=== PATIENT | female | born 1960 | race Asian ===

== ENCOUNTER 2020-11-07 08:33 | Outpatient (REF) | payer OTHER, SELFPAY ==
[2020-11-07 10:00] LABS: MANUAL DIFF FLAG NO
[2020-11-07 10:04] LABS: Basophils Percent Auto 0.4 % (0-2); Eosinophils Absolute Auto 0.2 X10*3/uL (0.0-0.4); Eosinophils Percent Auto 2.6 % (0-4); Hemoglobin 13.8 g/dl (12.0-16.0); Lymphocytes Absolute Auto 2.4 X10*3/uL (1.2-4.9); Lymphocytes Percent Auto 33.1 % (20-40); Mean Corpuscular HGB Conc 32.9 g/dl (31.0-35.0); Mean Corpuscular Hemoglobin 28.8 pg (27.0-33.0); Mean Corpuscular Volume 87.5 fL (80-98); Mean Platelet Volume 10.3 fL (9.4-12.3); Monocytes Absolute Auto 0.4 X10*3/uL (0.1-1.2); Monocytes Percent Auto 5.6 % (2-11); Neutrophils Absolute Auto 4.2 X10*3/uL (2.0-8.3); Neutrophils Percent Auto 58.3 % (45-73); Platelet Count 239 X10*3/uL (160-400); White Blood Count 7.2 X10*3/uL (4.8-10.8)
[2020-11-07 10:28] LABS: Alanine Aminotransferase 11 U/L (0-31); Albumin Level 4.4 g/dL (3.5-5.0); Alkaline Phosphatase 76 U/L (39-117); Anion Gap 9 (12-20); Aspartate Amino Transferase 16 U/L (5-31); Bilirubin Total 0.9 mg/dL (0.0-1.0); Blood Urea Nitrogen 13 mg/dL (9-16); Calcium 9.5 mg/dL (8.4-10.2); Carbon Dioxide 32 mmol/L (22-29); Chloride 104 mmol/L (96-108); Cholesterol 274 mg/dL; Estimated Glomerular Filt Rate > 60; Glucose Fasting 83 mg/dL (60-99); HDL Cholesterol 47 mg/dL; LDL Cholesterol Calculated 196 mg/dl; Potassium 4.2 mmol/L (3.3-5.1); Sodium 141 mmol/L (135-145); Total Protein 7.6 g/dL (6.5-8.0); Triglycerides 157 mg/dL
== END 2020-11-07 08:34 | disposition home or self-care (01) ==
LOC: HO.10HDL 08:33
PROVIDERS: Visit Provider Internal Medicine
DX: I10 Essential (primary) hypertension (principal); E78.00 Pure hypercholesterolemia, unspecified
CPT/HCPCS: 36415; 80053; 80061; 85025

== ENCOUNTER 2020-11-27 10:53 | Outpatient (REF) | payer OTHER, SELFPAY ==
[2020-11-27 13:43] LABS: MANUAL DIFF FLAG NO
[2020-11-27 13:48] LABS: Basophils Percent Auto 0.4 % (0-2); Eosinophils Absolute Auto 0.3 X10*3/uL (0.0-0.4); Eosinophils Percent Auto 4.6 % (0-4); Hematocrit 40.3 % (37-47); Hemoglobin 13.2 g/dl (12.0-16.0); Imm Gran Abs Auto 0.01 X10*3/uL (0.00-0.03); Imm Gran Pct Auto 0.2 % (0.0-0.4); Lymphocytes Absolute Auto 2.3 X10*3/uL (1.2-4.9); Lymphocytes Percent Auto 39.9 % (20-40); Mean Corpuscular HGB Conc 32.8 g/dl (31.0-35.0); Mean Corpuscular Hemoglobin 28.4 pg (27.0-33.0); Mean Corpuscular Volume 86.7 fL (80-98); Mean Platelet Volume 10.8 fL (9.4-12.3); Monocytes Absolute Auto 0.3 X10*3/uL (0.1-1.2); Monocytes Percent Auto 4.9 % (2-11); Neutrophils Absolute Auto 2.9 X10*3/uL (2.0-8.3); Platelet Count 227 X10*3/uL (160-400); Red Blood Count 4.65 X10*6/uL (4.20-5.50); Red Cell Distribution Width 11.9 % (11.0-16.0); White Blood Count 5.7 X10*3/uL (4.8-10.8)
[2020-11-27 14:21] LABS: Anion Gap 15 (12-20); Blood Urea Nitrogen 13 mg/dL (9-16); Carbon Dioxide 26 mmol/L (22-29); Chloride 104 mmol/L (96-108); Estimated Glomerular Filt Rate > 60; Potassium 3.9 mmol/L (3.3-5.1); Sodium 141 mmol/L (135-145)
[2020-11-27 14:22] LABS: Alanine Aminotransferase 16 U/L (0-31); Albumin Level 4.4 g/dL (3.5-5.0); Alkaline Phosphatase 79 U/L (39-117); Aspartate Amino Transferase 20 U/L (5-31); Bilirubin Total 0.8 mg/dL (0.0-1.0); Calcium 9.4 mg/dL (8.4-10.2); Glucose Random 80 mg/dL (60-115); Total Protein 7.4 g/dL (6.5-8.0)
== END 2020-11-27 10:54 | disposition home or self-care (01) ==
LOC: HO.10HDL 10:53
PROVIDERS: Visit Provider Internal Medicine
DX: I10 Essential (primary) hypertension (principal); E78.00 Pure hypercholesterolemia, unspecified; R51.9 Headache, unspecified
CPT/HCPCS: 36415; 80053; 82550; 85025; 86140

== ENCOUNTER 2022-12-20 07:56 | Outpatient (REF) | payer OTHER, SELFPAY ==
[2022-12-20 08:23] LABS: MANUAL DIFF FLAG NO
[2022-12-20 08:31] LABS: Basophils Percent Auto 0.5 % (0-2); Eosinophils Absolute Auto 0.2 X10*3/uL (0.0-0.4); Eosinophils Percent Auto 3.4 % (0-4); Hematocrit 39.3 % (37.0-47.0); Hemoglobin 12.9 g/dl (12.0-16.0); Imm Gran Abs Auto 0.01 X10*3/uL (0.00-0.03); Imm Gran Pct Auto 0.2 % (0.0-0.4); Lymphocytes Absolute Auto 2.4 X10*3/uL (1.2-4.9); Lymphocytes Percent Auto 40.5 % (20-40); Mean Corpuscular HGB Conc 32.8 g/dl (31.0-35.0); Mean Corpuscular Hemoglobin 28.2 pg (27.0-33.0); Monocytes Absolute Auto 0.4 X10*3/uL (0.1-1.2); Monocytes Percent Auto 7.5 % (2-11); Neutrophils Absolute Auto 2.8 x10*3/uL (2.0-8.3); Neutrophils Percent Auto 47.9 % (45-73); Platelet Count 229 X10*3/uL (160-400); Red Blood Count 4.57 X10*6/uL (4.20-5.50); Red Cell Distribution Width 12.2 % (11.0-16.0); White Blood Count 5.9 X10*3/uL (4.8-10.8)
[2022-12-20 09:05] LABS: Alanine Aminotransferase 18 U/L (0-31); Albumin Level 4.1 g/dL (3.5-5.0); Alkaline Phosphatase 63 U/L (39-117); Anion Gap 12 (12-20); Aspartate Amino Transferase 19 U/L (5-31); Bilirubin Total 0.8 mg/dL (0.0-1.0); Blood Urea Nitrogen 13 mg/dL (9-16); Calcium 9.4 mg/dL (8.4-10.2); Carbon Dioxide 26 mmol/L (22-29); Chloride 108 mmol/L (96-108); Cholesterol 187 mg/dL; Estimated Glomerular Filt Rate > 60; Glucose Random 89 mg/dL (60-115); HDL Cholesterol 44 mg/dL; LDL Cholesterol Calculated 118 mg/dl; Potassium 3.8 mmol/L (3.3-5.1); Sodium 142 mmol/L (135-145); Total Protein 7.2 g/dL (6.5-8.0); Triglycerides 125 mg/dL
== END 2022-12-20 07:57 | disposition home or self-care (01) ==
LOC: HO.LAB 07:56
PROVIDERS: PCP Internal Medicine; Visit Provider Internal Medicine
DX: I10 Essential (primary) hypertension (principal); E78.00 Pure hypercholesterolemia, unspecified
CPT/HCPCS: 36415; 80053; 80061; 85025

== ENCOUNTER 2025-03-21 15:49 | Outpatient (AMB) | payer OTHER, SELFPAY ==
--- NOTE | 2025-03-21 16:01 | A.OFFPC_ITS ---
Vital Signs 03/21/25 16:05 03/21/25 16:31 Height 5 ft 2 in Weight 55.792 kg BMI 22.5 BP 182/110 H 178/102 H Respiration 14 Pulse 74 Pulse Source Pulse Oximeter Temp 97.3 F Temp Source Temporal Artery Scan Pulse Oximetry (%) 99 Oxygen Delivery Method Room Air Intake Visit Reasons: Routine / Dr Shirley - see comments Threading Machine Tender Required: No Accompanied by: Self / Same As Patient Allergies No Known Allergies Allergy (Verified 03/21/25 16:03) Medication List - Last Reconciled 03/21/25 by MANUEL Pandey atorvastatin (Lipitor) 10 mg PO DAILY losartan 75 mg (1.5 x 50 mg) PO DAILY Tobacco use date assessed: 03/21/25 Fall risk assessment: No Falls in past year Last assessed Fall Risk: 03/21/25 Dental Screening Dental Screen Date: 03/21/25 Did you have a dental visit in the last 12 months?: Yes Did you have a dental problem in the last 6 months where you did not have access to dental care?: No Was dental information given to patient?: No HPI HPI Comments History of Present Illness Details 65-year-old female with history of hyper lipidemia and hypertension presenting to the office today for management of chronic conditions and to establish care. Former Dr. Shirley patient, last seen within the last year. Hypertension-blood pressure in the office today 182/110, on recheck 178/102. Reports compliance with losartan 25 mg daily. States she does check her blood pressure at home and is within normal limits but has not checked in some time. Hyperlipidemia-on atorvastatin 10 mg daily. Last LDL 118 Concerns: None Health maintenance: Last mammogram, over 1 year ago Has never undergone colonoscopy or Cologuard Follows with Dr. Disla for Pap smears/conveyor feeder offbearer visits Overdue for DEXA scan ROS: General: No fevers, malaise, unintentional weight loss HEENT: No blurred vision, diplopia. No sore throat, nasal congestion, rhinorrhea, sinus pain, ear pain Cardiovascular: No chest pain, palpitations, or leg edema Respiratory: No shortness of breath, wheezing, cough GI: No abdominal pain, nausea, vomiting, diarrhea, constipation, melena, hematochezia : No dysuria, hematuria, increased urinary frequency, decreased urinary output MSK: No myalgia, back pain Neuro: No headaches, weakness, paresthesias Skin: No rashes or lesions EXAM: Constitutional - Awake and Alert, No apparent distress Eyes - PERRL Cardiovascular - S1S2, RRR, No edema Respiratory - Normal lung expansion, Normal respiratory effort, No respiratory distress, CTA bilaterally Extremities - no calf tenderness bilaterally, no swelling Skin - Warm/Dry Neurological - Alert & oriented x3 Psychological - Appropriate affect PFSH Medical History (Updated 03/21/25 @ 16:20 by MANUEL Pandey) HLD (hyperlipidemia) Hypertension Family History (Updated 03/21/25 @ 16:04 by DONALDO Khanna) Mother No problems noted. Father No problems noted. Social History Housing: House Patient Tobacco Use Status: Never used Tobacco e-Cigarette/Vaping Use: Never Used service: No Current occupational status: retired Cognitive needs: No Hearing needs: No Vision needs: No Questionnaire AUDIT C Alcohol Use Questionnaire (AUDIT-C) 1. How often do you have a drink containing alcohol?: Never Total Score: 0 Physical exam (Primary Care) Vital Signs: Last Vital Signs Temp 97.3 F 03/21/25 16:05 Pulse 74 03/21/25 16:05 Resp 14 03/21/25 16:05 BP 178/102 H 03/21/25 16:31 Pulse Ox 99 03/21/25 16:05 Oxygen Delivery Method Room Air 03/21/25 16:05 BMI result Body Mass Index 22.5 Tobacco/Smoking Status: Tobacco use Status Tobacco use date assessed 03/21/25 03/21/25 16:07 Patient Tobacco Use Status Never used Tobacco 03/21/25 16:07 e-Cigarette/Vaping Use Never Used 03/21/25 16:07 Coding Level of Care Code New Pt Level 4 (23869) Complex EM visit Add On G2211 Diagnoses Hypertension I10 HLD (hyperlipidemia) E78.5 Assessment & Plan Assessment & Plan (1) Hypertension: Code(s): I10 - Essential (primary) hypertension Category: Medical Plan: Uncontrolled. Increase losartan to 75 mg daily. Low-sodium diet. Follow-up in the office in 1-2 weeks for blood pressure check (2) HLD (hyperlipidemia): Code(s): E78.5 - Hyperlipidemia, unspecified Category: Medical Plan: Lipid panel ordered, previously reasonably controlled. Continue atorvastatin 10 mg daily, dose to be adjusted as appropriate pending results of study. Recommend diet low in saturated fats and highly processed foods. Plan Follow-up in 1-2 weeks for blood pressure check. Labs to be completed prior to visit She is referred to Gastroenterology. Hesitant about colonoscopy, but agreeable to conversation Referred for DEXA scan Referred for mammogram Orders: Orders Complete Blood Count Auto Diff Today E78.5 - Hyperlipidemia, unspecified, I10 - Essential (primary) hypertension Lipid Panel Today E78.5 - Hyperlipidemia, unspecified, I10 - Essential (primary) hypertension Liver Panel Today E78.5 - Hyperlipidemia, unspecified, I10 - Essential (primary) hypertension Hemoglobin A1c Today E78.5 - Hyperlipidemia, unspecified, I10 - Essential (primary) hypertension Basic Metabolic Panel Today E78.5 - Hyperlipidemia, unspecified, I10 - Essential (primary) hypertension MM tomosynthesis screening BI Today Z12.31 - Encounter for screening mammogram for malignant neoplasm of breast Vitamin D 25-OH Total Today M89.8X9 - Other specified disorders of bone, unspecified site XR DEXA axial skeleton Today M89.8X9 - Other specified disorders of bone, unspecified site, Z78.0 - Asymptomatic menopausal state Referrals Gastroenterology Referral Z12.11 - Encounter for screening for malignant neoplasm of colon Medications: New losartan 75 mg (1.5 x 50 mg) PO DAILY 135 tabs 0RF Discontinued losartan Discontinued Reason: Doctor's Order 25 mg PO DAILY 90 tabs 3RF Patient Instructions: Blood pressure: Increase losartan to 75mg daily For now, can take 1 of the 25mg tab with 1 of the 50mg tabs Once you have run out of the 25mg tabs, take 1.5 tabs of the 50mg pill I will see you in 1-2 weeks
[2025-03-21 16:05] VITALS: BP 182/110; PULSE 74; RESP 14; TEMP 36.3; O2SAT 99; BMI 22.5
[2025-03-21 16:31] VITALS: BP 178/102
--- OUTSIDE RECORDS SUMMARY | 2025-03-21 18:56 | XMS_ITS | Patient Health Record ---
Author Organization [employer] [facility] Address [address] [place] [address] Care Team Providers Care Water/Wastewater Project Manager Name Role Phone DILIP GUARDADO M.D. Primary Care Provider Halley Valeria Ortiz Unavailable [phone] Reason For Referral No Information Medications Medication SIG (Take, Route, Frequency, Duration) Notes Start Date End Date Status Losartan Potassium 25 MG 1 tablet Orally Once a day Active Mirena 20 MCG/24HR Intrauterine INSERTED 2009 Active Problems Problem Type SNOMED Code ICD Code Onset Dates Problem Status W/U Status Risk Notes Problem Submucous leiomyoma of uterus (85200966) Submucous leiomyoma of uterus (218.0) Active confirmed Diag Problem Benign essential hypertension (6951548) Essential hypertension, benign (401.1) Active confirmed Major Problem Postcoital bleeding (72075427) Postcoital bleeding (626.7) Active confirmed Major Problem Menopausal symptom (72034840) Symptomatic menopausal or female climacteric states (627.2) Active confirmed Major Plan Of Treatment Pending Test Test Name Order Date MAMMOGRAM, SCREENING 05/04/2015 ENDOMETRIAL BX 11/17/2014 THIN PREP,HPV,REENA IF HPV+/CYT- (>29YR)( SCRN) 03/27/2017 MM Digital Mammo Screening 12/28/2015 MM Digital Mammo Screening 05/04/2015 Insurance Providers Payer Name Payer Address Payer Phone Subscriber Number Group Number Insured Name Patient Relationship to Insured Coverage Start Date Coverage End Date [facility] [address] [place] [address] [id number] [employer] MEANS Self - patient is the insured Medical (General) History Medical History History ICD Code Submucous leiomyoma of uterus D25.0 Essential (primary) hypertension I10 Menopausal and female climacteric states N95.1 Postcoital and contact bleeding N93.0 Surgical History Surgery Date(Month/Year) Colonoscopy Hospitalization History Reason Date(Month/Year) 2 Vaginal Deliveries
== END 2025-03-21 16:32 | disposition home or self-care (01) ==
LOC: HO.HMCHD 15:49
PROVIDERS: PCP Physician Assistant; Visit Provider Physician Assistant
DX: I10 Essential (primary) hypertension (principal); E78.5 Hyperlipidemia, unspecified

== ENCOUNTER → 2025-03-21 15:49 | Outpatient (BNVA) | payer OTHER, SELFPAY | PROVIDERS: PCP Physician Assistant; Visit Provider Physician Assistant | DX: I10 Essential (primary) hypertension (principal); E78.5 Hyperlipidemia, unspecified; Z79.899 Other long term (current) drug therapy | CPT/HCPCS: 99202 ==

== ENCOUNTER 2025-03-28 16:19 | Outpatient (AMB) | payer OTHER, SELFPAY ==
--- NOTE | 2025-03-28 16:22 | MHC.PC.OV ---
Vital Signs 03/28/25 16:25 03/28/25 16:50 Height 5 ft 2 in Weight 55.338 kg BMI 22.3 BP 150/88 H 138/82 Pulse 76 Pulse Source Pulse Oximeter Temp 97.8 F Temp Source Temporal Artery Scan Pulse Oximetry (%) 99 Oxygen Delivery Method Room Air Intake Visit Reasons: 1 Week F/U BP Check General Service Technician Required: No Accompanied by: Self / Same As Patient Allergies No Known Allergies Allergy (Verified 03/28/25 16:22) Tobacco use date assessed: 03/21/25 Dental Screening Dental Screen Date: 03/21/25 HPI HPI Comments History of Present Illness Details 65-year-old female with history of hypertension, hyperlipidemia presenting to the office today for blood pressure follow-up. At last visit, blood pressures were significantly elevated. Her losartan was increased to 75 mg daily which he has been taking as prescribed. Initial blood pressure in the office today 150/88 and on recheck 154/94. After several minutes, blood pressure was rechecked electronically and was normal at 138/82. She reports she does follow a healthy diet but has not been exercising as much as she previously did. No headaches, chest pain, vision changes, lightheadedness. ROS: see hpi EXAM: Constitutional - Awake and Alert, No apparent distress Eyes - PERRL Cardiovascular - S1S2, RRR, No edema Respiratory - Normal lung expansion, Normal respiratory effort, No respiratory distress, CTA bilaterally Extremities - no calf tenderness bilaterally, no swelling Skin - Warm/Dry Neurological - Alert & oriented x3 Psychological - Appropriate affect PFSH Medical History (Updated 03/21/25 @ 16:20 by MANUEL Pandey) HLD (hyperlipidemia) Hypertension Family History (Updated 03/21/25 @ 16:04 by DONALDO Khanna) Mother No problems noted. Father No problems noted. Social History Housing: House Patient Tobacco Use Status: Never used Tobacco e-Cigarette/Vaping Use: Never Used service: No Current occupational status: retired Cognitive needs: No Hearing needs: No Vision needs: No Physical exam (Primary Care) Vital Signs: Last Vital Signs Temp 97.8 F 03/28/25 16:25 Pulse 76 03/28/25 16:25 BP 150/88 H 03/28/25 16:25 Pulse Ox 99 03/28/25 16:25 Oxygen Delivery Method Room Air 03/28/25 16:25 BMI result Body Mass Index 22.3 Tobacco/Smoking Status: Tobacco use Status Tobacco use date assessed 03/21/25 03/28/25 16:28 Patient Tobacco Use Status Never used Tobacco 03/28/25 16:28 e-Cigarette/Vaping Use Never Used 03/28/25 16:28 Coding Level of Care Code Est Pt Level 3 (84914) Diagnoses Hypertension I10 Assessment & Plan Assessment & Plan (1) Hypertension: Code(s): I10 - Essential (primary) hypertension Category: Medical Plan: Blood pressure controlled on recheck. There is likely a component of white coat hypertension. Continue losartan 75 mg daily. Low-sodium diet. Advised to begin exercising again for at least 150 minutes weekly. Advised to have labs done to evaluate renal function electrolyte levels. Plan Follow-up in 6 months with labs completed following this visit
[2025-03-28 16:25] VITALS: BP 150/88; PULSE 76; TEMP 36.6; O2SAT 99; BMI 22.3
[2025-03-28 16:50] VITALS: BP 138/82
--- OUTSIDE RECORDS SUMMARY | 2025-03-28 18:41 | XMS_ITS | Patient Health Record ---
Author Organization [employer] [facility] Address [address] [place] [address] Care Team Providers Care Molding Line Operator Name Role Phone DILIP GUARDADO M.D. Primary Care Provider Halley Valeria Ortiz Unavailable [phone] Reason For Referral No Information Medications Medication SIG (Take, Route, Frequency, Duration) Notes Start Date End Date Status Losartan Potassium 25 MG 1 tablet Orally Once a day Active Mirena 20 MCG/24HR Intrauterine INSERTED 2009 Active Problems Problem Type SNOMED Code ICD Code Onset Dates Problem Status W/U Status Risk Notes Problem Submucous leiomyoma of uterus (61947368) Submucous leiomyoma of uterus (218.0) Active confirmed Diag Problem Benign essential hypertension (8530849) Essential hypertension, benign (401.1) Active confirmed Major Problem Postcoital bleeding (54066767) Postcoital bleeding (626.7) Active confirmed Major Problem Menopausal symptom (69348049) Symptomatic menopausal or female climacteric states (627.2) Active confirmed Major Plan Of Treatment Pending Test Test Name Order Date MAMMOGRAM, SCREENING 05/04/2015 ENDOMETRIAL BX 11/17/2014 THIN PREP,HPV,REENA IF HPV+/CYT- (>29YR)( SCRN) 03/27/2017 MM Digital Mammo Screening 05/04/2015 MM Digital Mammo Screening 12/28/2015 Insurance Providers Payer Name Payer Address Payer Phone Subscriber Number Group Number Insured Name Patient Relationship to Insured Coverage Start Date Coverage End Date [facility] [address] [place] [address] [id number] [employer] MEANS Self - patient is the insured Medical (General) History Medical History History ICD Code Submucous leiomyoma of uterus D25.0 Essential (primary) hypertension I10 Menopausal and female climacteric states N95.1 Postcoital and contact bleeding N93.0 Surgical History Surgery Date(Month/Year) Colonoscopy Hospitalization History Reason Date(Month/Year) 2 Vaginal Deliveries
== END 2025-03-28 16:51 | disposition home or self-care (01) ==
LOC: HO.HMCHD 16:20
PROVIDERS: PCP Physician Assistant; Visit Provider Physician Assistant
DX: I10 Essential (primary) hypertension (principal)

== ENCOUNTER → 2025-03-28 16:19 | Outpatient (BNVA) | payer OTHER, SELFPAY | PROVIDERS: PCP Physician Assistant; Visit Provider Physician Assistant | DX: I10 Essential (primary) hypertension (principal); Z79.899 Other long term (current) drug therapy | CPT/HCPCS: 99212 ==

== ENCOUNTER 2025-03-29 16:15 | Outpatient (REF) | payer OTHER, SELFPAY ==
[2025-03-29 16:25] LABS: MANUAL DIFF FLAG NO
[2025-03-29 16:39] LABS: Hematocrit 42.6 % (37.0-47.0); Hemoglobin 14.2 g/dl (12.0-16.0); Imm Gran Abs Auto 0.01 X10*3/uL (0.00-0.03); Imm Gran Pct Auto 0.2 % (0.0-0.4); Lymphocytes Absolute Auto 2.5 X10*3/uL (1.2-4.9); Mean Corpuscular HGB Conc 33.3 g/dl (31.0-35.0); Mean Corpuscular Hemoglobin 28.5 pg (27.0-33.0); Mean Corpuscular Volume 85.4 fL (80.0-98.0); NRBC Abs Auto 0.000 X10*3/uL (0.0-0.012); NRBC Pct Auto 0.0 /100WBC (0.0-0.2); Platelet Count 239 X10*3/uL (160-400); Red Blood Count 4.99 X10*6/uL (4.20-5.50); White Blood Count 6.0 X10*3/uL (4.8-10.8)
[2025-03-29 16:54] LABS: Hemoglobin A1C 143.2970 umol/L; Total Hemoglobin (HGBA1C) 3721.6151 umol/L
[2025-03-29 17:20] LABS: Alanine Aminotransferase 32 U/L (0-31); Albumin Level 4.8 g/dL (3.5-5.0); Alkaline Phosphatase 80 U/L (39-117); Anion Gap 10 (12-20); Aspartate Amino Transferase 54 U/L (5-31); Blood Urea Nitrogen 15 mg/dL (9-16); Calcium 9.9 mg/dL (8.4-10.2); Carbon Dioxide 32 mmol/L (22-29); Chloride 103 mmol/L (96-108); Cholesterol 248 mg/dL (<200); Estimated Glomerular Filt Rate > 60; HDL Cholesterol 42 mg/dL (>40); Potassium 3.5 mmol/L (3.3-5.1); Sodium 141 mmol/L (135-145); Total Protein 8.0 g/dL (6.5-8.0); Triglycerides 265 mg/dL (<150)
--- OUTSIDE RECORDS SUMMARY | 2025-03-29 18:06 | XMS_ITS | Patient Health Record ---
Author Organization [employer] [facility] Address [address] [place] [address] Care Team Providers Care Gear Tooth Lapping Machine Operator Name Role Phone DILIP GUARDADO M.D. Primary Care Provider Halley Valeria Ortiz Unavailable [phone] Reason For Referral No Information Medications Medication SIG (Take, Route, Frequency, Duration) Notes Start Date End Date Status Losartan Potassium 25 MG 1 tablet Orally Once a day Active Mirena 20 MCG/24HR Intrauterine INSERTED 2009 Active Problems Problem Type SNOMED Code ICD Code Onset Dates Problem Status W/U Status Risk Notes Problem Submucous leiomyoma of uterus (90883794) Submucous leiomyoma of uterus (218.0) Active confirmed Diag Problem Benign essential hypertension (4996192) Essential hypertension, benign (401.1) Active confirmed Major Problem Postcoital bleeding (05162329) Postcoital bleeding (626.7) Active confirmed Major Problem Menopausal symptom (90964888) Symptomatic menopausal or female climacteric states (627.2) [...] Insured Coverage Start Date Coverage End Date [facility] [address] [place] [address] [id number] PABLO MEANS Self - patient is the insured Medical (General) History Medical History History ICD Code Submucous leiomyoma of uterus D25.0 Essential (primary) hypertension I10 Menopausal and female climacteric states N95.1 Postcoital and contact bleeding N93.0 Surgical History Surgery Date(Month/Year) Colonoscopy Hospitalization History Reason Date(Month/Year) 2 Vaginal Deliveries
== END 2025-03-29 16:16 | disposition home or self-care (01) ==
LOC: HO.LAB 16:15
PROVIDERS: PCP Physician Assistant; Visit Provider Physician Assistant
DX: I10 Essential (primary) hypertension (principal); E78.5 Hyperlipidemia, unspecified; M89.8X9 Other specified disorders of bone, unspecified site
CPT/HCPCS: 36415; 80048; 80061; 80076; 82306; 83036; 85025

== ENCOUNTER 2025-06-30 10:24 | Outpatient (REF) | payer OTHER, SELFPAY ==
--- NOTE | ~2025-06-30 | MM_ITS ---
EXAMINATION: DXA BONE DENSITY AXIAL HISTORY: Z78.0 - Asymptomatic menopausal state TECHNIQUE: [employer] Dual energy absorptiometry (DEXA) of the lumbar spine, total left hip, and femoral neck was performed. COMPARISON: Comparison is made with the prior examination dated 02/29/2016. FINDINGS: The bone mineral density of the lumbar spine is 1.190 g/cm2, corresponding to a T-score of 0.1, and a Z-score of 2.0. This is indicative of normal bone mineral density. This represents a BMD change of -8.1% compared to the prior exam. This is statistically significant. The bone mineral density of the left total hip is 0.955 g/cm2, corresponding to a T-score of -0.4, and a Z-score of 1.0. This is indicative of normal bone mineral density. This represents a BMD change of -13.6% compared to the prior exam. This is statistically significant. The bone mineral density of the left femoral neck is 0.957 g/cm2, corresponding to a T-score of -0.6, and a Z-score of 1.1. This is indicative of normal bone mineral density. This represents a BMD change of -13.2% compared to the prior exam. FRACTURE RISK: The FRAX index suggests a ten year probability of major osteoporotic fracture of 3.8%, and of hip fracture 0.2%. MM/XR DEXA axial skeleton IMPRESSION: Based on bone mineral density, and according to World Health Organization (WHO) criteria, the diagnosis is consistent with normal bone mineral density. Statistically, 68% of repeat scans fall within 1 SD (+/- 0.010 g/cm2 for AP spine L1-L4) and 1 SD (+/- 0.012 g/cm2 for femur total) FRAX is a trademark of the [employer]'s [employer] Met[employer] Disease, a World Health Organization (WHO) Collaborating Center. Electronically signed by: Davian Moon MD 06/30/2025 11:14 AM [facility]
--- NOTE | ~2025-06-30 | MM_ITS ---
EXAMINATION: MM SCREENING DIGITAL BREAST TOMOSYNTHESIS, BILATERAL CLINICAL INFORMATION: Screening. Asymptomatic. COMPARISON: Mammography: Comparison is made with available priors TECHNIQUE: Digital breast mammography with tomosynthesis is performed in both the craniocaudal and mediolateral oblique views along with computer-aided detection (CAD). FINDINGS: The breasts are heterogeneously dense, which may obscure small masses. Right: Asymmetry superior breast middle to posterior depth on MLO view. No suspicious calcifications or other abnormal findings. Left: There are no significant masses, abnormal calcifications, or other abnormalities. MM/MM tomosynthesis screening BI IMPRESSION: Additional imaging is recommended ASSESSMENT: BI-RADS Category 0: Incomplete - Need additional Imaging Evaluation RECOMMENDATION: 1. Additional views of the right breast. 2. Targeted ultrasound if warranted after review of the additional views. 3. Radiology department staff will contact the patient for additional imaging. Additional Imaging required . Electronically signed by: Deb Barger DO 07/03/2025 04:24 PM EST
--- OUTSIDE RECORDS SUMMARY | 2025-06-30 10:27 | XMS_ITS | Patient Health Record ---
Author Organization [employer] [facility] Address [address] [place] [address] Care Team Providers Care Table Games Supervisor Name Role Phone DILIP GUARDADO M.D. Primary Care Provider Halley Valeria Ortiz Unavailable [phone] Reason For Referral No Information Medications Medication SIG (Take, Route, Frequency, Duration) Notes Start Date End Date Status Losartan Potassium 25 MG 1 tablet Orally Once a day Active Mirena 20 MCG/24HR Intrauterine INSERTED 2009 Active Problems Problem Type SNOMED Code ICD Code Onset Dates Problem Status W/U Status Risk Notes Problem Submucous leiomyoma of uterus (86023135) Submucous leiomyoma of uterus (218.0) Active confirmed Diag Problem Benign essential hypertension (0672535) Essential hypertension, benign (401.1) Active confirmed Major Problem Postcoital bleeding (31710264) Postcoital bleeding (626.7) Active confirmed Major Problem Menopausal symptom (76322915) Symptomatic menopausal or female climacteric states (627.2) [...] Insured Coverage Start Date Coverage End Date [facility] [address] [place] [address] [phone] [id number] [employer] MEANS Self - patient is the insured Medical (General) History Medical History History ICD Code Submucous leiomyoma of uterus D25.0 Essential (primary) hypertension I10 Menopausal and female climacteric states N95.1 Postcoital and contact bleeding N93.0 Surgical History Surgery Date(Month/Year) Colonoscopy Hospitalization History Reason Date(Month/Year) 2 Vaginal Deliveries
== END 2025-06-30 10:25 | disposition home or self-care (01) ==
LOC: HO.MAMMO 10:24
PROVIDERS: Visit Provider Physician Assistant
DX: Z12.31 Encounter for screening mammogram for malignant neoplasm of breast (principal); Z78.0 Asymptomatic menopausal state; M89.8X9 Other specified disorders of bone, unspecified site
CPT/HCPCS: 77063; 77067; 77080

== ENCOUNTER → 2025-06-30 11:00 | Outpatient (BNV) | payer OTHER, SELFPAY | PROVIDERS: Visit Provider Radiology Diagnostic Radiology | DX: Z12.31 Encounter for screening mammogram for malignant neoplasm of breast (principal) | CPT/HCPCS: 77063; 77067; 77080 ==